=== PATIENT | male | born 1955 | race Caucasian/White ===

== ENCOUNTER → 2017-01-03 | Outpatient (CLI) | payer MEDICARE ==
[~2017-01-03] MED LIST: ASPIRIN EC81 MG PO; BUMETANIDE2 MG PO; CATAPRES 0.1MG0.1 MG PO; COMBIVENT0.074 GM/I INH; CORDARONE 200M200 MG PO; COREG 25MG TAB25 MG PO; DIGOXIN125 MCG PO; ELIQUIS5 MG PO; FENOFIBRATE160 MG PO; HYDRALAZINE HCL50 MG PO; LEVAQUIN500 MG PO; NEURONTIN 300300 MG PO; NORVASC 5 MG TAB5 MG PO; NOVOLOG100 UNIT/1 SQ; PRAVASTATIN SOD40 MG PO; SPIRONOLACTONE25 MG PO; TRESIBA SQ; TYLENOL W/CODEIN1 E1 PO; VICTOZA 3-0.6 MG/0.1 SQ
== END ==
LOC: HEART 5 10:13
DX: J44.9 Chronic obstructive pulmonary disease, unspecified (principal); J45.909 Unspecified asthma, uncomplicated; J98.11 Atelectasis; R94.2 Abnormal results of pulmonary function studies
CPT/HCPCS: 71020-FX; 94060; 94729

== ENCOUNTER → 2017-01-21 | Outpatient (CLI) | payer MEDICARE | LOC: HEART 5 09:00 | DX: I50.22 Chronic systolic (congestive) heart failure (principal) | CPT/HCPCS: 93306 ==

== ENCOUNTER → 2017-02-11 | Outpatient (CLI) | payer MEDICARE | LOC: LAB 10:13 | PROVIDERS: Nurse Practitioner | DX: E11.8 Type 2 diabetes mellitus with unspecified complications (principal) | CPT/HCPCS: 36415; 80048; 80061; 82043; 82570; 84443 ==

== ENCOUNTER → 2017-02-28 | Outpatient (CLI) | payer MEDICARE, OTHER | LOC: LAB 12:32 | PROVIDERS: Internal Medicine Cardiovascular Disease | DX: I11.0 Hypertensive heart disease with heart failure (principal); I25.5 Ischemic cardiomyopathy; I48.91 Unspecified atrial fibrillation; I50.22 Chronic systolic (congestive) heart failure | CPT/HCPCS: 36415; 80048 ==

== ENCOUNTER → 2017-03-09 | Outpatient (CLI) | payer MEDICARE | LOC: LAB 12:41 | PROVIDERS: Internal Medicine Nephrology | DX: I12.9 Hypertensive chronic kidney disease with stage 1 through stage 4 chronic kidney disease, or unspecified chronic kidney disease (principal); N18.3 Chronic kidney disease, stage 3 (moderate); E78.5 Hyperlipidemia, unspecified; I25.10 Atherosclerotic heart disease of native coronary artery without angina pectoris; I48.91 Unspecified atrial fibrillation; I50.22 Chronic systolic (congestive) heart failure | CPT/HCPCS: 36415; 80053; 82043; 82570 ==

== ENCOUNTER → 2017-03-29 | Outpatient (CLI) | payer MEDICARE | LOC: LAB 12:45 | PROVIDERS: Internal Medicine Nephrology | DX: N17.9 Acute kidney failure, unspecified (principal); N18.9 Chronic kidney disease, unspecified | CPT/HCPCS: 36415; 80053 ==

== ENCOUNTER → 2017-04-01 | Outpatient (CLI) | payer MEDICARE | LOC: US 15:00 | DX: N28.1 Cyst of kidney, acquired (principal); N28.89 Other specified disorders of kidney and ureter | CPT/HCPCS: 76775 ==